=== PATIENT | male | born 1955 | race Caucasian/White ===

== ENCOUNTER 2021-11-18 02:46 | Emergency (ER) | payer MEDICARE, OTHER ==
[~2021-11-18] VITALS: Ht 162.6 cm; Wt 72.6 kg
--- NOTE | 2021-11-18 02:55 | NUR ---
PLACED ON SEIZURE PRECAUTION
--- NOTE | 2021-11-18 02:55 | NUR ---
EFREN 38 FROM HOME FOR WITNESSED SEIZURE. POST-ICTAL ON TRIAGE. PATIENT IS AAOX1 NOW. CAME WITH PICC ON RIGHT UA G20. -CP, -SOB. PER PARAMEDICS, PATIENT'S BASELINE AT HOME IS AAOX4. HE IS UNDER CHEMO TREATMENT.
--- NOTE | 2021-11-18 03:15 | NUR ---
BLOOD DRAWN AND SENT TO LAB
--- NOTE | 2021-11-18 03:15 | NUR ---
ACCUCHECK 112mg/dl
--- NOTE | 2021-11-18 03:25 | NUR ---
EKG ATTEMPTED BUT PATIENT IS RESTLESS, WILL REPEAT LATER. MD AWARE.
--- NOTE | 2021-11-18 03:28 | NUR ---
CXR DONE AT BEDSIDE
[2021-11-18 03:35] LABS: BASOPHILS % (AUTO) 0.7 % (0.0-2.0); EOSINOPHILS % (AUTO) 0.7 % (0.0-6.0); HEMATOCRIT 23 % (39-51); HEMOGLOBIN 8.3 g/dL (13.5-17.5); LYMPHOCYTES # (AUTO) 0.6 K/uL (0.8-4.8); LYMPHOCYTES % (AUTO) 83.8 % (20.0-44.0); MEAN CORPUSCULAR HGB CONC 36 g/dl (31.0-36.0); MEAN CORPUSCULAR VOLUME 92 fL (80-96); MONOCYTES % (AUTO) 1.8 % (2.0-12.0); NEUTROPHILS # (AUTO) 0.1 K/uL (1.8-8.9); PLATELET COUNT (AUTO) 51 K/uL (150-450); RED BLOOD CELL COUNT(AUTO) 2.53 MIL/uL (4.5-6.0)
--- NOTE | 2021-11-18 03:36 | NUR ---
EKG DONE AT BEDSIDE
[2021-11-18 03:40] LABS: CALCIUM, SERUM 8.5 mg/dL (8.5-10.1); CARBON DIOXIDE 24 mmol/L (21-32); CHLORIDE 104 mmol/L (98-107); CREATININE 1.9 mg/dL (0.6-1.3); GLUCOSE 128 mg/dL (74-106); POTASSIUM 4.7 mmol/L (3.5-5.1); SODIUM SERUM 136 mmol/L (136-145); UREA NITROGEN, BLOOD 30 mg/dL (7-18)
[2021-11-18 03:47] LABS: ALANINE AMINOTRANSFERASE 34 U/L (12-78); ALBUMIN 3.2 g/dL (3.4-5.0); ALKALINE PHOSPHATASE 83 U/L (46-116); ASPARTATE AMINOTRANSFERASE 17 U/L (15-37); BILIRUBIN,DIRECT 0.2 mg/dL (0.0-0.2); BILIRUBIN,TOTAL 1.8 mg/dL (0.2-1.0); TOTAL PROTEIN, SERUM 6.1 g/dL (6.4-8.2)
[2021-11-18 03:48] LABS: ALCOHOL, BLOOD < 3 mg/dL (0-0)
[2021-11-18 03:50] LABS: WHITE BLOOD COUNT (AUTO) 0.7 K/uL (4.3-11.0)
--- NOTE | 2021-11-18 03:50 | NUR ---
DR HUDSON MADE AWARE ABOUT THE CRITICAL RESULT OF WBC 0.7.
[2021-11-18 03:52] LABS: BAND % (MANUAL) 2 % (0.0-5.0)
[2021-11-18 03:54] LABS: LYMPHOCYTES % (MANUAL) 82 % (16-48); MONOCYTES % (MANUAL) 1 % (0-11.0)
[2021-11-18 03:55] LABS: NEUTROPHILS % (MANUAL) 15 (42-76)
--- NOTE | 2021-11-18 04:10 | NUR ---
URINE SPECIMEN SENT TO LAB
[2021-11-18] MEDS ORDERED: LORAZEPAM INJ 2 MG/ML VIAL ONE (04:24)
[2021-11-18] MEDS ORDERED: LORAZEPAM INJ 2 MG/ML VIAL IV ONE (04:30)
--- NOTE | 2021-11-18 04:56 | NUR ---
SPARKLE [phone]
--- NOTE | 2021-11-18 05:15 | NUR ---
PT BROUGHT TO CT DEPT
[2021-11-18] MEDS ORDERED: LEVETIRACETAM (500MG) 500 MG in IV NS 0.9% 100 ML IV SCH (06:00)
[2021-11-18] MEDS ORDERED: LEVETIRACETAM (500MG) 500 MG/5 ML VIAL IV ONE (06:08)
--- NOTE | 2021-11-18 06:10 | NUR ---
SEIZURE MEDICATION GIVEN
--- NOTE | 2021-11-18 06:32 | NUR ---
ADDENDUM: Intravenous End Time Documentation: Keppra 500 MG IVPB: start time:0632 am; end time: 0702 am : IV site: PIV # 20 HUGO Port # 1
--- NOTE | 2021-11-18 07:02 | NUR ---
kepra 500mg iv given on HUGO PICC endtime 07. tolerated well
--- NOTE | 2021-11-18 08:09 | NUR ---
SON RANJIT WILL RESIDENT SERVICES COORDINATOR PATIENT IN 10MINS
--- NOTE | 2021-11-18 08:43 | NUR ---
PT CUSTOMER ENGAGEMENT REPRESENTATIVE BY FAMILY, MEDICALLY CLEARED. DISCHARGE HOME IN STABLE CONDITION.
[2021-11-18 08:45] VITALS: BP 144/80
--- NOTE | 2021-11-28 07:02 | NUR ---
Slim rivas in ED - 11/30/21 at 0715 by MARJORIE kepra 500mg iv given on [facility] endtime 07. tolerated well
== END 2021-11-18 08:46 | disposition home or self-care (01) ==
LOC: ER 02:51
DX: G40.909 Epilepsy, unspecified, not intractable, without status epilepticus (principal); D61.818 Other pancytopenia; N28.9 Disorder of kidney and ureter, unspecified; C79.31 Secondary malignant neoplasm of brain; Z85.6 Personal history of leukemia; I10 Essential (primary) hypertension; Z98.890 Other specified postprocedural states
CPT/HCPCS: 99285; 96365; 96375; 93005; 71045; 70450; 85025; 80048; 80076; 85007; 36415; 82962; 80320; 80307; J2060; J7030 ×2; J1953; G0480